=== PATIENT | female | born 1955 | race Caucasian/White ===

== ENCOUNTER 2020-06-23 10:36 | Emergency (ER) | payer OTHER ==
[2020-06-23 12:30] LABS: Absolute Lymphocytes (CBC) 3.2 K/uL (0.7-4.9); Basophils % 0.9 % (0-1.3); Hematocrit 48.5 % (36.0-45.0); Lymphocytes % 28.5 % (15.3-44.8); MPV 10.6 fL (7.6-11.3); RBC Red Blood Cell Count 5.11 M/uL (3.86-4.86)
[2020-06-23 12:42] LABS: Albumin 3.7 g/dL (3.4-5.0); Bilirubin Direct 0.1 mg/dL (0-0.2); Bilirubin Total 0.5 mg/dL (0.2-1.0); Potassium 4.1 mmol/L (3.5-5.1); Protein, Total 8.3 g/dL (6.4-8.2)
[2020-06-23 12:55] LABS: Urine Blood NEGATIVE (NEG); Urine Glucose 2+ (NEG); Urine Protein NEGATIVE (NEG)
--- NOTE | 2020-06-23 13:05 | RAD REPORT ---
EXAM DESCRIPTION: CT - Abdomen Pelvis W Contrast - 06/23/2020 12:55 pm CLINICAL HISTORY: ABD PAIN COMPARISON: No comparisons TECHNIQUE: Biphasic, helical CT imaging of the abdomen and pelvis was performed following 100 ml non -ionic IV contrast. No oral contrast. All CT scans are performed using dose optimization technique as appropriate and may include automated exposure control or mA/KV adjustment according to patient size. FINDINGS: No suspicious findings in the lung bases. Diffuse fatty infiltration of the liver is present without a focal liver lesion. Portal vein is unrem arkable. No liver capsule nodularity seen. Spleen and pancreas show no suspicious findings. Gallbl[place] er and biliary tree are also without suspicious finding. Symmetric renal function is seen with no hydronephrosis or suspicious renal mass. No pyelonephritis o r acute parenchymal process. Partially filled urinary bladder shows no suspicious finding. Uterus is absent. Ovaries are absent or atrophic. No adnexal mass. No adrenal abnormalities. No dilated bowel loops or bowel wall thickening. No free air, free fluid or inflammatory stranding. No hernia, mass or bulky lymphadenopathy. No suspicious bony findings. Degenerative changes are present. IMPRESSION: As detailed above, contrast CT abdomen and pelvis imaging shows no acute or suspicious f inding.
--- NOTE | 2020-06-23 13:11 | ER ---
Nurse's Notes [facility] Name: Reyna Wells Age: 64 yrs Sex: Female : 1955 Arrival Date: 06/23/2020 Time: 10:39 Bed 16 Private MD: Diagnosis: Groin Strain Presentation: 06/23 10:56 Chief complaint: Patient states: low back pain and low pelvic pain x 2 weeks. Saw her sv PCP last week and prescribed anti inflammatories but no relief. Recent UTI and yeast infection this month. Coronavirus screen: Client denies travel out of the [place] in the last 14 days. At this time, the client does not indicate any symptoms associated with coronavirus-19. Ebola Screen: No symptoms or risks identified at this time. Initial Sepsis Screen: Does the patient meet any 2 criteria? No. Patient's initial sepsis screen is negative. Does the patient have a suspected source of infection? No. Patient's initial sepsis screen is negative. Risk Assessment: Do you want to hurt yourself or someone else? Patient reports no desire to harm self or others. Onset of symptoms was May 2020. 10:56 Method Of Arrival: Ambulatory sv 10:56 Acuity: CHRISTINE 3 sv Triage Assessment: 10:59 General: Appears in no apparent distress. uncomfortable, obese, well developed, sv Behavior is calm, cooperative, appropriate for age. Pain: Complains of pain in low back area and suprapubic area Pain currently is 7 out of 10 on a pain scale. Neuro: Level of Consciousness is awake, alert, obeys commands, Oriented to person, place, time, situation, Moves all extremities. Gait is steady, Speech is normal. Respiratory: Respiratory effort is even, unlabored, Respiratory pattern is regular, symmetrical. : Reports discharge, white. Derm: Skin is pink, warm \T\ dry. Historical: - Allergies: 10:59 No Known Allergies; sv - PMHx: 10:59 acid reflux; sv - PSHx: 10:59 Hysterectomy; ; sv - Immunization history:: Adult Immunizations up to date. Screenin:00 Abuse screen: Denies threats or abuse. Denies injuries from another. Nutritional sv screening: No deficits noted. Tuberculosis screening: No symptoms or risk factors identified. Fall Risk None identified. Assessment: 12:56 Reassessment: Patient appears in no apparent distress at this time. No changes from sv previously documented assessment. Patient and/or family updated on plan of care and expected duration. Pain level reassessed. Patient is alert, oriented x 3, equal unlabored respirations, skin warm/dry/pink. 13:33 Reassessment: Patient appears in no apparent distress at this time. No changes from sv previously documented assessment. Patient and/or family updated on plan of care and expected duration. Pain level reassessed. Patient is alert, oriented x 3, equal unlabored respirations, skin warm/dry/pink. Vital Signs: 10:56 BP 154 / 85; Pulse 79; Resp 18; Temp 98.4; Pulse Ox 99% ; Weight 124.74 kg; Height 5 sv ft. 5 in. (165.10 cm); Pain 7/10; 13:32 BP 158 / 95; Pulse 82; Resp 16; Pulse Ox 100% on R/A; sv 10:56 Body Mass Index 45.76 (124.74 kg, 165.10 cm) sv ED Course: 10:39 Patient arrived in ED. ds1 10:55 Amanda Cano, DIANA is Primary Nurse. sv 10:59 Gilmar Wilson PA is PHCP. [facility] 10:59 Andrea Arita MD is Attending Physician. [facility] 10:59 Triage completed. sv 10:59 Arm band placed on. sv 11:00 Patient has correct armband on for positive identification. Bed in low position. Call sv light in reach. Pulse ox on. NIBP on. Door closed. Head of bed elevated. 11:40 Inserted saline lock: 20 gauge in left antecubital area, using aseptic technique. Blood sv collected. Flushed left antecubital with 5 ml normal saline. 12:55 CT Abd/Pelvis - IV Contrast Only In Process Unspecified. EDMS 13:06 Awaiting radiology results. sv 13:33 No provider procedures requiring assistance completed. IV discontinued, intact, sv bleeding controlled, No redness/swelling at site. Pressure dressing applied. Administered Medications: 13:30 Drug: TORadol - Ketorolac 15 mg Route: IVP; Site: left antecubital; sv 13:33 Follow up: Response: No adverse reaction sv Outcome: 13:10 Discharge ordered by . jmm 13:33 Discharged to home ambulatory. sv 13:33 Condition: stable 13:33 Discharge instructions given to patient, Instructed on discharge instructions, follow up and referral plans. no drinking with medication, no driving heavy equipment, medication usage, Demonstrated understanding of instructions, follow-up care, medications, Prescriptions given X 1. 13:33 Patient left the ED. sv Signatures: Dispatcher [employer] Amanda Monterroso RN RN sv Mickail, Joel, PA PA jmm Sanford, Demi ds1 Corrections: (The following items were deleted from the chart) 15:10 15:09 Patient left the ED. sv sv
--- NOTE | 2020-06-23 13:11 | EDPHYS ---
Physician Documentation [facility] Name: Reyna Wells Age: 64 yrs Sex: Female : 1955 Arrival Date: 06/23/2020 Time: 10:39 Bed 16 Private MD: ED Physician Andrea Arita HPI: 06/23 11:31 This 64 yrs old Female presents to ER via Ambulatory with complaints of jmm Pelvic Pain, Low Back Pain. 11:31 The patient presents with pelvic pain. Onset: The symptoms/episode began/occurred jmm acutely, 10 day(s) ago. Modifying factors: The symptoms are alleviated by nothing, the symptoms are aggravated by movement, standing. Associated signs and symptoms: Pertinent negatives: dysuria, fever. This is a 64 year old female with a history of GERD that presents to the ED with complaints of pelvic pain beginning after lifting a 70 lb bag of shrimp. Patient states pain is worse when attempting to stand. Denies fever, leg weakness, incontinence. . Historical: - Allergies: 10:59 No Known Allergies; sv - PMHx: 10:59 acid reflux; sv - PSHx: 10:59 Hysterectomy; ; sv - Immunization history:: Adult Immunizations up to date. ROS: 11:31 Constitutional: Negative for fever, chills, and weight loss, Cardiovascular: Negative jmm for chest pain, palpitations, and edema, Respiratory: Negative for shortness of breath, cough, wheezing, and pleuritic chest pain. 11:31 MS/extremity: Positive for pain. 11:31 All other systems are negative. Exam: 11:31 Constitutional: This is a well developed, well nourished patient who is awake, alert, jmm and in no acute distress. Head/Face: atraumatic. Eyes: EOMI, no conjunctival erythema appreciated ENT: Moist Mucus Membranes Neck: Trachea midline, Supple Chest/axilla: Normal chest wall appearance and motion. Cardiovascular: Regular rate and rhythm. No edema appreciated Respiratory: Normal respirations, no respiratory distress appreciated 11:31 Back: Normal ROM Skin: General appearance color normal MS/ Extremity: Moves all extremities, no obvious deformities appreciated, no edema noted to the lower extremities Neuro: Awake and alert, normal gait Psych: Behavior is normal, Mood is normal, Patient is cooperative and pleasant 11:31 Abdomen/GI: Inspection: obese Bowel sounds: normal, Palpation: soft, mild abdominal tenderness, in the suprapubic area. Vital Signs: 10:56 BP 154 / 85; Pulse 79; Resp 18; Temp 98.4; Pulse Ox 99% ; Weight 124.74 kg; Height 5 sv ft. 5 in. (165.10 cm); Pain 7/10; 13:32 BP 158 / 95; Pulse 82; Resp 16; Pulse Ox 100% on R/A; sv 10:56 Body Mass Index 45.76 (124.74 kg, 165.10 cm) sv MDM: 11:31 Patient medically screened. [facility] 13:09 Data reviewed: vital signs, nurses notes. Counseling: I had a detailed discussion with [facility] the patient and/or guardian regarding: the historical points, exam findings, and any diagnostic results supporting the discharge/admit diagnosis, lab results, radiology results, the need for outpatient follow up, to return to the emergency department if symptoms worsen or persist or if there are any questions or concerns that arise at home. ED course: Patient is alert and non toxic in appearance in the ED. Imaging studies negative. Patient advised to follow up with pcp and otherwise given strict return precautions Patient understood and agrees with the plan of care. . 06/23 11:32 Order name: Basic Metabolic Panel; Complete Time: 12:43 [facility] 06/23 11:32 Order name: CBC with Diff; Complete Time: 12:43 [facility] 06/23 11:32 Order name: Hepatic Function; Complete Time: 12:43 [facility] 06/23 11:32 Order name: Lipase; Complete Time: 12:43 [facility] 06/23 11:32 Order name: CT Abd/Pelvis - IV Contrast Only; Complete Time: 13:06 [facility] 06/23 11:53 Order name: Urine Dipstick--Ancillary (enter results); Complete Time: 12:56 06/23 11:32 Order name: IV Saline Lock; Complete Time: 12:00 [facility] 06/23 11:32 Order name: Labs collected and sent; Complete Time: 12:00 [facility] 06/23 11:32 Order name: Urine Dipstick-Ancillary (obtain specimen); Complete Time: 12:00 [facility] Administered Medications: 13:30 Drug: TORadol - Ketorolac 15 mg Route: IVP; Site: left antecubital; sv 13:33 Follow up: Response: No adverse reaction sv Disposition: 17:39 Co-signature as Attending Physician, Andrea Arita MD I agree with the assessment and kdr plan of care. Disposition: 06/23/20 13:10 Discharged to Home. Impression: Groin Strain. - Condition is Stable. - Discharge Instructions: Muscle Strain. - Prescriptions for orphenadrine citrate 100 mg Oral Tablet Sustained Release - take 1 tablet by ORAL route 2 times per day As needed; 20 tablet. - Medication Reconciliation Form, Thank You Letter, Antibiotic Education, Prescription Opioid Use form. - Follow up: Private Physician; When: 2 - 3 days; Reason: Recheck today's complaints, Continuance of care, Re-evaluation by your physician. Signatures: Dispatcher [employer] EDAmanda Sanchez RN RN sv Rittger, Kevin, MD MD kdr Mickail, Joel, PA PA [facility] Corrections: (The following items were deleted from the chart) 13:13 13:10 06/23/2020 13:10 Discharged to Home. Impression: Grain Strain. Condition is jmm Stable. Forms are Medication Reconciliation Form, Thank You Letter, Antibiotic Education, Prescription Opioid Use. Follow up: Private Physician; When: 2 - 3 days; Reason: Recheck today's complaints, Continuance of care, Re-evaluation by your physician. [facility] 13:33 13:13 06/23/2020 13:10 Discharged to Home. Impression: Groin Strain. Condition is sv Stable. Forms are Medication Reconciliation Form, Thank You Letter, Antibiotic Education, Prescription Opioid Use. Follow up: Private Physician; When: 2 - 3 days; Reason: Recheck today's complaints, Continuance of care, Re-evaluation by your physician. [facility] 15:09 13:33 06/23/2020 13:10 Discharged to Home. Impression: Groin Strain. Condition is sv Stable. Discharge Instructions: Muscle Strain. Prescriptions for orphenadrine citrate 100 mg Oral Tablet Sustained Release - take 1 tablet by ORAL route 2 times per day As needed; 20 tablet. and Forms are Medication Reconciliation Form, Thank You Letter, Antibiotic Education, Prescription Opioid Use. Follow up: Private Physician; When: 2 - 3 days; Reason: Recheck today's complaints, Continuance of care, Re-evaluation by your physician. sv
[2020-06-23] MEDS ORDERED: KETOROLAC 30 MG/ML INJ ONE (13:39)
[2020-06-27 12:55] VITALS: TEMP 98.4
[2020-06-27 12:56] VITALS: BP 158/95; O2SAT 100
== END 2020-06-23 15:09 | disposition home or self-care (01) ==
LOC: ER 10:36
DX: S39.011A Strain of muscle, fascia and tendon of abdomen, initial encounter (principal); X50.0XXA Overexertion from strenuous movement or load, initial encounter; Y93.89 Activity, other specified; Y92.9 Unspecified place or not applicable
CPT/HCPCS: 85025; 80048; 36415; 82565; 80076; 81003; 83690; 74177; 96374; 99284; Q9967